=== PATIENT | female | born 1995 | race Caucasian/White ===

== ENCOUNTER 2017-02-19 20:09 | Emergency (ER) | payer SELFPAY ==
[~2017-02-19] VITALS: Ht 157.5 cm; Wt 84.3 kg
[~2017-02-19 20:09] MED LIST: HYDR-3138 PO; HYDR25TA11 PO; METH750T87 PO; PROC10TA PO; RANI150T4 PO; SULF1TAB3 PO; [UNRECOGNIZED DRUG - REMARK] PO
[2017-02-19 20:11] VITALS: BP 120/82
[2017-02-19 22:24] LABS: HCG UR OBC PASS
== END 2017-02-19 23:01 | disposition home or self-care (01) ==
LOC: ED 22:52
DX: N30.90 Cystitis, unspecified without hematuria (principal); G89.29 Other chronic pain; R30.0 Dysuria; K21.9 Gastro-esophageal reflux disease without esophagitis
CPT/HCPCS: 81001; 81025; 87077; 87086; 87186; 99284

== ENCOUNTER 2017-05-07 10:16 | Emergency (ER) | payer OTHER ==
[~2017-05-07] VITALS: Ht 157.5 cm; Wt 78.0 kg
[~2017-05-07 10:16] MED LIST changes: -HYDR-3138 PO; +HYDR-3237 PO; +SULF-169 PO; -SULF1TAB3 PO
[2017-05-07 11:20] LABS: HEMATOCRIT 45.2 % (34.6-47.8); WHITE BLOOD COUNT 6.8 x10^3/uL (3.4-10)
[2017-05-07] MEDS ORDERED: MAALOX/HYOSCYAMINE/LIDOCAINE 45 ML BTL ONE (11:26)
[2017-05-07] MEDS ORDERED: MAALOX/HYOSCYAMINE/LIDOCAINE 45 ML BTL PO ONE (11:30)
[2017-05-07 11:40] LABS: BLOOD UREA NITROGEN 12 mg/dL (7-18)
[2017-05-07 11:43] LABS: ASPARTATE AMINO TRANSFERASE 9 U/L (15-37)
[2017-05-07 14:30] VITALS: BP 136/81
== END 2017-05-07 14:57 | disposition home or self-care (01) ==
LOC: ED 11:26
DX: R07.89 Other chest pain (principal); R11.0 Nausea; R63.0 Anorexia
CPT/HCPCS: 36415; 76700; 80053; 84702; 85025; 99285